=== PATIENT | female | born 1975 | race Caucasian/White ===

== ENCOUNTER 2019-11-21 13:36 | Emergency (ER) | payer OTHER ==
[~2019-11-21] VITALS: Ht 165.1 cm; Wt 81.7 kg
[~2019-11-21 13:36] MED LIST: AMOXICILLIN 50500 MG PO; ANTABUSE250 M1 PO; BAYER CHEWABLE81 MG PO; CIPRO500 M1 PO; COUMADIN 1MG TAB1 M1; COUMADIN 5 MG TA5 M1 PO; COUMADIN7.5 MG PO; HYDROCODONE-AP1 EAC6 PO; KEFLEX500 MG PO; METHYLPREDNISOLO1 GM MC; NALTREXONE HCL50 MG PO; NOHOMEMEDICATIONS; NORCO 5-325 TA1 EACH PO; ONDANSETRON HCL4 M2 PO; PAXIL10 MG PO; PREDNISONE50 MG PO; PROAIR HFA8.5 GM INH; VISTARIL 25 MG25 M1 PO; XARELTO10 M1; XARELTO20 MG PO; ZOFRAN ODT4 MG PO; [UNRECOGNIZED DRUG - REMARK]
[2019-11-21 14:15] LABS: INFLUENZA A ANTIGEN Negative (Negative); INFLUENZA B ANTIGEN Negative (Negative)
[2019-11-21 14:46] LABS: ABSOLUTE BASOPHILS 0.1 thou/uL (0.0-0.2); ABSOLUTE EOSINOPHILS 0.1 thou/uL (0.0-0.7); ABSOLUTE LYMPHOCYTES 2.8 thou/uL (0.8-5.3); ABSOLUTE MONOCYTES 0.4 thou/uL (0.0-1.2); ABSOLUTE NEUTROPHILS 3.7 thou/uL (1.6-8.1); HEMATOCRIT 38.2 % (37.0-47.0); HEMOGLOBIN 13.4 gm/dL (12.0-15.0); LYMPHOCYTES 39.8 %; MCH 30.7 pg (26.0-34.0); MCHC 35.1 g/dL (28.0-37.0); MCV 87.6 fL (80.0-100.0); MONOCYTES 5.8 %; MPV 6.6 fl. (7.2-11.1); NUCLEATED RBCS 0 /100WBC; PLATELET COUNT* 311 thou/uL (150-400); POLYS 51.4 %; RBC 4.36 mil/uL (4.20-5.00); WBC 7.1 thou/uL (4.0-11.0)
[2019-11-21 14:55] LABS: CALCIUM 8.3 mg/dL (8.5-10.1); CREATININE 0.7 mg/dL (0.6-1.3); POTASSIUM 3.4 mmol/L (3.5-5.1)
[2019-11-21 14:59] LABS: ALBUMIN 3.4 g/dL (3.4-5.0); TOTAL BILIRUBIN 0.1 mg/dL (<0.1-1.0); TOTAL PROTEIN 6.6 g/dL (6.4-8.2)
[2019-11-21] MEDS ORDERED: LEVAQUIN 500 M500 M2 PO ×2 (16:27→16:29)
[2019-11-21] MEDS ORDERED: PROAIR HFA8.5 GM INH (16:27)
[2019-11-21] MEDS ORDERED: CEFDINIR300 MG PO ×2 (16:32→16:35)
[2019-11-21] MEDS ORDERED: TESSALON PERLE100 MG PO (16:35)
[2019-11-21] MEDS ORDERED: PROMETHAZI6.25 MG/5 PO (16:35)
[2019-11-21 17:07] VITALS: BP 125/69
--- NOTE | 2019-11-22 08:53 | EKG ---
[place] [address] ELECTROCARDIOGRAM REPORT Name: MARTINAZULLY GARCIA Room: [facility]#: [id number] Admission: 11/21/19 Attend Phys: Discharge: 11/21/19 Date of : 71 Date of Service: 11/21/19 1529 Report #: [id number] THIS REPORT FOR: //name// [facility] ED Test Date: 2019-11-21 Test Time: 15:29:08 Pat Name: ZULLY FOSTER Department: Room: Gender: F [employer]: RICHI : 1975 Requested By: Liban De Los Santos Order Number: [id number] MD: Sim Fields Measurements Intervals [place] Rate: 87 P: 71 TN: 128 QRS: 55 QRSD: 93 T: 23 QT: 437 QTc: 526 Interpretive Statements Sinus rhythm Borderline T abnormalities, anterior leads Prolonged QT interval Compared to ECG 04/02/2017 19:39:31 Sinus tachycardia no longer present Electronically Signed On 11-22-2019 8:52:41 CDT by Sim Fields [email or web address] <ELECTRONICALLY SIGNED> By: Sim Fields MD, FACC 11/22/19 0852 1529 1529 Sim Fields MD, [facility] /EPI
== END 2019-11-21 17:08 | disposition home or self-care (01) ==
LOC: M.ERS 13:36
PROVIDERS: Physician Assistant
DX: J42 Unspecified chronic bronchitis (principal); G43.909 Migraine, unspecified, not intractable, without status migrainosus; Z88.6 Allergy status to analgesic agent; Z98.890 Other specified postprocedural states; Z98.51 Tubal ligation status; Z86.711 Personal history of pulmonary embolism; Z86.73 Personal history of transient ischemic attack (TIA), and cerebral infarction without residual deficits; Z87.01 Personal history of pneumonia (recurrent)